=== PATIENT | male | born 1950 | race Caucasian/White ===

== ENCOUNTER 2021-04-25 19:22 | Emergency (ER) | payer MEDICARE, BC ==
--- NOTE | 2021-04-25 20:07 | EDM.PDOC ---
ED HPI GENERAL MEDICAL PROBLEM - General Chief Complaint: Flank Pain Stated Complaint: EXTREME LOWER BACK PAIN ON RT SIDE Time Seen by Provider: 04/25/21 20:03 Source of Information: Reports: Patient History Limitations: Reports: No Limitations - History of Present Illness INITIAL COMMENTS - FREE TEXT/NARRATIVE: Doni is a 71 year old male presents to ER with right sided back pain for the last few days which has been intermittent with increased symptoms this am and again the last few hours. Doni reports history of kidney stones years ago which felt similar. Doni denies urinary symptoms, fever, chill, sweats, cough or URI symptoms. Doni report slight nausea with last bout of pain. Doni was brought to ER by due to pain concerns. Doni reports taking Ibuprofen 5 200mg tablets early and pain is resolved at this time. Right Flank Pain Score (Numeric/FACES): 1 - Related Data Allergies Allergy/AdvReac Type Severity Reaction Status Date / Time No Known Allergies Allergy Verified 04/25/21 20:06 Home Meds: Home Meds Acetaminophen/HYDROcodone [[place] 325-5 MG] 1 - 2 tab PO Q6H PRN 3 Days #12 tab 04/25/21 [Rx] Eplerenone 50 mg PO DAILY 04/25/21 [History] Fenofibrate Nanocrystallized [Fenofibrate] 48 mg PO DAILY 04/25/21 [History] Omeprazole 20 mg PO DAILY 04/25/21 [History] Tamsulosin [Flomax] 0.4 mg PO BEDTIME 04/25/21 [History] allopurinoL [Zyloprim] 100 mg PO DAILY 04/25/21 [History] amLODIPine [Norvasc] 5 mg PO DAILY 04/25/21 [History] atenoloL [Atenolol] 100 mg PO DAILY 04/25/21 [History] ED ROS GENERAL - Review of Systems Review Of Systems: Comprehensive ROS is negative, except as noted in HPI. ED EXAM, RENAL/ - Physical Exam Exam: See Below Exam Limited By: No Limitations General Appearance: Alert, WD/WN, Mild Distress (due to concern regarding recurrent flank pain right ) Eye Exam: Bilateral Eye: Normal Inspection Ears: Hearing Grossly Normal Throat/Mouth: Normal Voice, No Airway Compromise Neck: Full Range of Motion Respiratory/Chest: No Respiratory Distress, Lungs Clear, Normal Breath Sounds Cardiovascular: Normal Peripheral Pulses, Regular Rate, Rhythm GI/Abdominal: Normal Bowel Sounds, Soft, Non-Tender Back Exam: Normal Inspection. No: CVA Tenderness (R), CVA Tenderness (L) Extremities: Normal Inspection, Normal Range of Motion Neurological: Alert, Oriented, CN II-XII Intact, Normal Cognition, Normal Gait Psychiatric: Normal Affect, Normal Mood Skin Exam: Warm, Dry, Intact, Normal Color, No Rash Course - Vital Signs Last Recorded V/S: Last Vital Signs Temp 36.6 C 04/25/21 20:10 Pulse 81 04/25/21 20:10 Resp 16 04/25/21 20:10 BP 134/81 04/25/21 20:10 Pulse Ox 96 04/25/21 20:10 - Orders/Labs/Meds Labs: Laboratory Tests 04/25/21 Range/Units 20:06 Urine Color Other A (YELLOW) Urine Appearance Cloudy A (CLEAR) Urine pH 5.5 (5.0-8.0) Ur Specific [place] 1.025 (1.008-1.030) Urine Protein 30 H (NEGATIVE) mg/dL Urine Glucose (UA) Negative (NEGATIVE) mg/dL Urine Ketones Negative (NEGATIVE) mg/dL Urine Occult Blood Large H (NEGATIVE) Urine Nitrite Negative (NEGATIVE) Urine Bilirubin Negative (NEGATIVE) Urine Urobilinogen 0.2 (0.2-1.0) EU/dL Ur Leukocyte Esterase Negative (NEGATIVE) Urine RBC 75-100 H (0-5) Urine WBC 5-10 H (0-5) Ur Epithelial Cells Few Amorphous Sediment Not seen Urine Bacteria Not seen Urine Mucus Moderate Urine Other Meds: Medications Discontinued Medications Generic Name Dose Route Start Last Admin Trade Name Yadi PRN Reason Stop Dose Admin Hydrocodone Bitart/Acetaminophen 1 tab 04/25/21 20:30 04/25/21 20:39 Acetaminophen/Hydrocodone 325-5 Mg Tab PO 04/25/21 20:31 1 tab ONETIME ONE Administration - Re-Assessments/Exams Free Text/Narrative Re-Assessment/Exam: Pain remains around 1 out of 10 after self treated with Ibuprofen 1000mg and [place] during ER visit. CT reviewed with obvious right kidney stones possible ureteral stone proximal ureter. CT radiology report noted 8mm proximal right ureter just distal to UPJ with mild hydronephrosis. 7mm in lower pole right kidney, additional punctate stones lower pole. No left calculus, renal cysts and/or hydronephrosis. Discussed with ER physician regarding appropriate referral source and patient may need stone removal right kidney if continued pain referral to Urology. Recommended appointment in the next week at [facility] or possible referral to [facility] if more urgent need. 04/25/21 21:56 Departure - Departure Time of Disposition: 21:56 Disposition: Home, Self-Care 01 Clinical Impression: Ureteral stone with hydronephrosis - Discharge Information Prescriptions: Acetaminophen/HYDROcodone [[place] 325-5 MG] 1 - 2 tab PO Q6H PRN 3 Days #12 tab PRN Reason: Pain (Severe 7-10) Instructions: Hydronephrosis, Kidney Stones, [id number], Flank Pain, Adult, [id number] Referrals: PCP,None [Primary Care Provider] - Forms: ED Department Discharge Additional Instructions: KIDNEY STONE Medical Kidney stone Expulsion Therapy Flomax is a medication used if stone in ureter (tube between kidney and bladder) is larger in size and more than half way from the kidney to the urinary bladder. Flomax may improve pain, speed up the passage of the kidney stone and decrease pain. Please take your next dose tomorrow, if you receive your first dose during your ER visit. Strain all of your urine. If you notice stone in the filter, place in container and take to your primary care physician for analyzing. 1. Increase Fluid intake. Increase Flomax to 0.8mg at night for the next 10 evenings. Pain should resolve in 48-72 hours. 2. Ibuprofen 800mg or Naproxen 500mg (with food) every 6-8hours for inflammation, pain and swelling. 3. Tylenol (Acetaminophen) every 6-8hours for mild pain OR 4. [place] #12 [employer] Narcotic pain medications (if offered) as directed for moderate to severe pain. Max 6 per 24hrs 5. Strain all urine to save stone for possible lab analysis. 6. Call PCP in am regarding Urology clinic follow-up when available if pain is not resolved or improving with oral medications/interventions. Urology is not available in [place] but available in [place] during the week. [facility] if surgical need is more emergent or weekends. 7. Return to ER, PCP or Urgent Care clinic for repeat evaluation if increase, changes, new or worsen symptoms (including uncontrolled fever, pain, nausea/vomiting) Discharge Instructions Kidney Stones Kidney stones are a common problem that can cause a lot of pain but fortunately are usually not dangerous. Kidney stones form in the kidney and then can cause a blockage (obstruction) of the flow of urine from the kidney which leads to pain. Most patients can manage kidney stones at home (without a hospital stay). However, sometimes your condition may be worse than it seemed at first, or may get worse with time. Most kidney stones will pass on their own, but occasionally stones may need to be removed by an urologist. Generally, every Emergency Department visit should have a follow-up clinic visit with either a primary or a specialty clinic/provider. Please follow-up as instructed by your emergency provider today. Return to the Emergency Department if: Your pain is not controlled despite the medications provided or recommended. You are vomiting (throwing up) and cannot keep fluids or medications down. You develop a fever (>100.4F). You feel much more ill or develop new symptoms. What can I do to help myself? Be sure to drink plenty of fluids. If instructed to do so, strain your urine (pee) with the urine strainer you were provided with today. Your stone may look like a grain of sand or a small pebble. Collect any stones in the cup provided and bring to your follow-up appointment. Staying active is good, and may help the stone to pass. You may do whatever you feel up to doing without restrictions. Treatment: Non-steroidal anti-inflammatory drugs (NSAIDs). This includes prescription medicines like Toradol (ketorolac) and non-prescription medicines like Advil (ibuprofen) and Nuprin (ibuprofen) and Naproxen. These pain relievers are very effective for kidney stones. Nausea (sick to your stomach) medication. Nausea and vomiting are common with kidney stones, so your provider may send you home with medicine for this. Flomax (tamsulosin). This medicine is sometimes used for men with prostate problems, but also can help kidney stones to pass. Its effectiveness is controversial or questionable so it is prescribed in certain situations. This medicine can lower blood pressure, and you may feel faint/lightheaded, especially when you first stand up. Be sure to get up gradually, sit down if you feel faint, and avoid activity where feeling faint would be dangerous, such as climbing ladders. If you were given a prescription for medicine here today, be sure toread all of the information (including the package insert) that comes with your prescription. This will include important information about the medicine, its side effects, and any warnings that you need to know about. The pharmacist who fills the prescription can provide more information and answer questions you may have about the medicine. If you have questions or concerns that the pharmacist cannot address, please call or return to the Emergency Department. Remember that you can always come back to the Emergency Department if you are not able to see your regular provider in the amount of time listed above, if you get any new symptoms, or if there is anything that worries you. Sepsis Event Note (ED) - Focused Exam Vital Signs: Vital Signs Temp Pulse Resp BP Pulse Ox 04/25/21 20:10 36.6 C 81 16 134/81 96 04/25/21 20:02 36.6 C 81 16 134/81 96
[2021-04-25] MEDS ORDERED: Acetaminophen/HYDROcodone 325-5 MG Tab PO ONE (20:30)
--- NOTE | 2021-04-25 21:38 | CRLCT ---
For Patients: As a result of the Cures Act, medical imaging exams and procedure reports are released immediately into your electronic medical record. You may view this report before your referring provider. If you have questions, please contact your health care provider. INDICATION: Right flank pain. History of kidney stones. TECHNIQUE: CT abdomen and pelvis without contrast. COMPARISON: None FINDINGS: Lower chest: No acute abnormality. Linear atelectasis in the right middle lobe. Liver: Enlarged. No focal lesion. Spleen: Unremarkable. Pancreas: Unremarkable. Gallbladder and bile ducts: Unremarkable. Adrenal glands: Unremarkable. Kidneys: 8 mm calculus in the proximal right ureter just distal to the ureteropelvic junction. This results in mild right hydronephrosis. 7 mm calculus in the lower pole of the right kidney. Additional punctate calculus in the lower pole. No left-sided calculus. No left hydronephrosis. No suspicious renal lesion. GI tract: No acute bowel abnormality. Appendix is normal. Vascular structures: No abdominal aortic aneurysm. There is atherosclerotic calcification. Lymph nodes: Unremarkable. Miscellaneous: No free air or ascites. Pelvic Organs: Urinary bladder appears normal. There are prostatic calcifications. Prostate is prominent. Bones: No acute abnormality. No suspicious bone lesion. 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 IMPRESSION: 1. 8 mm calculus in the proximal right ureter just distal to the ureteropelvic junction resulting in mild right hydronephrosis. 2. Right nephrolithiasis. Dictated by Hima Hill MD @ 04/25/2021 9:36:29 PM Please note that all CT scans at this facility use dose modulation, iterative reconstruction, and/or weight-based dosing when appropriate to reduce radiation dose to as low as reasonably achievable. Dictated by: Hima Hill MD @ 04/25/2021 21:36:38 (Electronically Signed)
== END 2021-04-25 22:32 | disposition home or self-care (01) ==
LOC: JP.ED 19:22
DX: N13.2 Hydronephrosis with renal and ureteral calculous obstruction (principal); Z79.899 Other long term (current) drug therapy
CPT/HCPCS: 74150; 81001; 99284; A9270